=== PATIENT | male | born 1965 | race Caucasian/White ===

== ENCOUNTER 2022-12-30 19:43 | Emergency (ER) | payer SELFPAY ==
[~2022-12-30] VITALS: Ht 188 cm; Wt 87.0 kg
[2022-12-30] MEDS ORDERED: ONDANSETRON HCL 4MG/2ML INJ IV NR (20:19)
[2022-12-30] MEDS ORDERED: KETOROLAC 30MG/ML VIAL IV NR (20:19)
[2022-12-30] MEDS ORDERED: SODIUM CHLORIDE 0.9% 1,000 ML IV ONE (20:30)
[2022-12-30 20:57] LABS: HEMATOCRIT. 37.7 % (42.0-52.0); HEMOGLOBIN. 12.6 g/dL (14.0-18.0); MEAN CORPUSCULAR HEMOGLOBIN 30.4 pg (28.0-32.0); MEAN CORPUSCULAR VOLUME 90.6 fL (80.0-94.0); MEAN PLATELET VOLUME 9.9 fl (7.4-10.4); PLATELET 227 x1000/uL (130-400); RED BLOOD CELL COUNT 4.16 mill/uL (4.7-6.1); RED CELL DISTRIBUTION WIDTH 13.6 % (11.6-14.6)
[2022-12-30 21:03] LABS: CHLORIDE 108 mEq/L (98-107)
[2022-12-30] MEDS ORDERED: HYDROCODONE/ACETAMINOPHEN 5/325MG TABLET PO ONE (23:15)
[2022-12-30] MEDS ORDERED: METR375C2 MT (23:22)
[2022-12-30] MEDS ORDERED: CEPH500C2 MT (23:22)
[2022-12-30] MEDS ORDERED: ONDA4TAB50 MT (23:22)
[2022-12-30] MEDS ORDERED: CEPHALEXIN 250MG CAPSULE PO ONE (23:30)
[2022-12-30] MEDS ORDERED: METRONIDAZOLE 500 MG PREMIX 100 ML IV ONE (23:30)
[2022-12-30 23:38] LABS: PLATELET ESTIMATE NORMAL
[2022-12-30] MEDS ORDERED: HYDR-4001 MT (23:50)
[2022-12-31] VITALS: BP 165/84
[2022-12-31] MEDS ORDERED: HYDR-4001 MT (19:21)
== END 2022-12-31 00:32 | disposition home or self-care (01) ==
LOC: ER 19:43
DX: K80.50 Calculus of bile duct without cholangitis or cholecystitis without obstruction (principal); Z88.0 Allergy status to penicillin
CPT/HCPCS: 36415; 76705; 80053; 83605; 83690; 84484; 85025; 93005; 96374; 96375; 99285; J1885; J2405